=== PATIENT | female | born 1990 | race Caucasian/White ===

== ENCOUNTER 2018-08-10 20:34 | Emergency (ER) | payer OTHER ==
[~2018-08-10] VITALS: Ht 160 cm; Wt 63.5 kg
[2018-08-11] MEDS ORDERED: ZYNCOF 20-400120 ML PO (06:58)
[2018-08-11] MEDS ORDERED: ZITHROMAX500 MG PO (06:58)
[2018-08-11] MEDS ORDERED: PROVENTIL HFA6.7 GM IH (06:58)
== END 2018-08-11 07:09 | disposition home or self-care (01) ==
LOC: ER 20:34
DX: J06.9 Acute upper respiratory infection, unspecified (principal); E86.0 Dehydration